=== PATIENT | female | born 1960 | race Caucasian/White ===

== ENCOUNTER 2024-09-27 06:17 | Day surgery (SDC) | payer BC, SELFPAY | END 2024-09-27 10:33 | disposition home or self-care (01) | LOC: GI 06:17 | PROVIDERS: ATTENDING PHYSICIAN Internal Medicine Gastroenterology; FAMILY PHYSICIAN Nurse Practitioner Adult Health | DX: Z12.11 Encounter for screening for malignant neoplasm of colon (principal); Z15.09 Genetic susceptibility to other malignant neoplasm; K64.8 Other hemorrhoids; K63.3 Ulcer of intestine; R12 Heartburn; K52.89 Other specified noninfective gastroenteritis and colitis; K62.1 Rectal polyp; K31.89 Other diseases of stomach and duodenum; Z86.0100 Personal history of colon polyps, unspecified; K31.9 Disease of stomach and duodenum, unspecified | CPT/HCPCS: 45380; 43239; 88305; 88312; 88342 ==

== ENCOUNTER → 2024-10-17 08:07 | Outpatient (REF) | payer BC, SELFPAY | LOC: HWRAD 08:07 | PROVIDERS: ATTENDING PHYSICIAN Obstetrics & Gynecology; FAMILY PHYSICIAN Nurse Practitioner Adult Health; REFERRING PHYSICIAN Internal Medicine Gastroenterology | DX: R10.32 Left lower quadrant pain (principal) | CPT/HCPCS: 76830; 76856 ==

== ENCOUNTER → 2025-01-07 14:41 | Outpatient (REF) | payer MEDICARE, SELFPAY | LOC: HWRAD 14:41 | PROVIDERS: ATTENDING PHYSICIAN Nurse Practitioner; FAMILY PHYSICIAN Nurse Practitioner Adult Health | DX: T18.9XXA Foreign body of alimentary tract, part unspecified, initial encounter (principal) | CPT/HCPCS: 74018 ==

== ENCOUNTER 2025-06-08 21:31 | Emergency (ER) | payer MEDICARE, SELFPAY ==
[2025-06-08 21:34] VITALS: BP 164/90
[2025-06-08] MEDS: TYLENOL 1000 MG PO (22:52)
[2025-06-08] MEDS: MOTRIN 600 MG PO (22:53)
--- NOTE | 2025-06-08 23:37 | ED.GENMED ---
History of Present Illness
General
Chief Complaint: Musculo-Skeletal Complaint
Source: patient
Exam Limitations: none
Time Seen by Provider: 06/08/25 21:51
Nursing documentation reviewed up to this point in time: agreed with
History of Present Illness
History of Present Illness:
64-year-old female presenting to the emergency department today with concerns of left ankle discomfort after getting her ankle twisted after a fall prior to arrival. Ongoing pain to the left ankle mild pain to the left knee no head trauma no loss
of consciousness no blood thinners.
Review of Systems
Review of Systems
Allergies reviewed?: Yes
All Other Systems: ROS reviewed and negative except as documented in HPI and ROS
Phy Exam
Physical Exam
Physical Exam:
GENERAL: Alert , in no apparent distress
EYE: pupils equal and reactive
NECK: Supple, no significant adenopathy.
ENT: o/p clr, mmm.
CARDIAC: Regular rate and rhythm .
LUNGS: Clear breath sounds bilaterally, no acute respiratory distress, no wheezes/rales/rhonchi
ABDOMEN: Soft, without focal tenderness, no r/g, no cvat
NEUROLOGICAL: Alert and oriented, no focal neuro deficits
SKIN: Warm and dry, skin intact.
MUSCULOSKELETAL: Swelling to left ankle mainly overlying the left lateral malleolus. No discomfort to the medial malleolus negative squeeze test no pain to the nichols or knee good range of motion at the knee to the midfoot forefoot or toes., well
perfused.
PSYCH: Normal and appropriate interaction.
Course
Orders/Labs/Results
Orders:
Orders
06/08/25 21:36
CR Ankle - Left Min 3 Views Urgent
Comment:
Reason For Exam: pain
Knee, Left 4 or More Views [CR Knee - Left 4 Or More View*] Urgent
Comment:
Reason For Exam: pain
06/08/25 22:48
Acetaminophen [Tylenol] 1,000 mg PO NOW STA
Ibuprofen [Motrin] 600 mg PO NOW STA
Vital Signs
Initial and Last Documented VS:
Initial Vital Signs
Temp Pulse Resp BP Pulse Ox
97.4 F 73 16 164/90 99
06/08/25 21:34 06/08/25 21:34 06/08/25 21:34 06/08/25 21:34 06/08/25 21:34
Last Documented Vital Signs
Temp Pulse Resp BP Pulse Ox
97.4 F 73 16 164/90 99
06/08/25 21:34 06/08/25 21:34 06/08/25 21:34 06/08/25 21:34 06/08/25 21:34
Procedures
Splinting/Sling Placement
Left Ankle:
Procedure completed by: Myself
Pre-splint extermity exam: neurovascular intact
Type of splint: sugar-tong and posterior short leg
Splint material: fiberglass
Splint checked by provider?: Yes
Normal distal neurovascular exam?: Yes
MDM/Problems Addressed
MDM/Problems Addressed:
64-year-old female presenting to the emergency department today with concerns of left ankle discomfort after tripping prior to arrival. Patient was found to have a distal fibular fracture no other signs of emergent pathology on imaging. Patient
was splinted and advised for orthopedic follow-up. Return precautions given.
*Pulse Oximetry
SaO2: 99
Oxygen Mode of Delivery: Room air
Patient hypoxic: no (98)
*Critical Care Note
Total Time (30-74mins, 75-104mins- exclusive of procedures): Not Applicable
ED Attending Note
-
Portions of this chart may have been created with voice recognition software.� Occasional wrong word or��sound alike� substitutions may have occurred due to the inherent limitations of voice recognition software.
Discharge Plan
Departure
Patient Disposition: Home (Routine Discharge)
Date of Disposition: 06/08/25
Time of Disposition: 23:39
Patient with high blood pressure during this ER visit?: No
Condition: Good
Covid-19: Not Applicable
Discharge Problem:
Ankle fracture
Instructions: Ankle Fracture (DC)
Prescriptions:
New
ibuprofen 600 mg tablet
600 mg PO Q8H PRN (Reason: Pain) Qty: 10 0RF
acetaminophen 325 mg capsule
650 mg PO Q6H PRN (Reason: Pain) Qty: 14 0RF
Referrals:
Susana Corral CRNP [Family Provider, General]
John Floyd MD [Active, Orthopedics] - Follow up in 5-7 days
Activity Restrictions/Additional Instructions:
You came to the emergency department today with concerns of ankle discomfort. You were found to have a fibular fracture. Please follow closely with orthopedics this week. Return for any worsening, new or concerning symptoms.
Interventions
Interventions:
*Risk Screen - Suicide Last Done: 06/08/25 21:34
*General Assessment Last Done: 06/08/25 21:56
*Neglect/Abuse Screening Last Done: 06/08/25 21:34
*ED- Fall Risk Assessment Last Done: 06/08/25 21:56
*ED COVID-19 Vaccine History Last Done: 06/08/25 21:56
*ED Influenza Vaccine History Last Done: 06/08/25 21:56
ED-Musculoskeletal Assessment Last Done: 06/08/25 21:57
Discharge Date and Time
Print Language: GABONESE
== END 2025-06-09 00:08 | disposition home or self-care (01) ==
LOC: EMR 21:31
PROVIDERS: EMERGENCY PHYSICIAN Emergency Medicine; FAMILY PHYSICIAN Nurse Practitioner Adult Health
DX: S82.832A Other fracture of upper and lower end of left fibula, initial encounter for closed fracture (principal); X50.1XXA Overexertion from prolonged static or awkward postures, initial encounter; W19.XXXA Unspecified fall, initial encounter
CPT/HCPCS: 99283; 73564; 73610